=== PATIENT | female | born 1980 | race Caucasian/White ===

== ENCOUNTER → 2018-01-05 | Outpatient (CLI) | payer BC ==
[~2018-01-05] VITALS: Ht 167.6 cm; Wt 77.7 kg
[~2018-01-05] MED LIST: ASPIRIN81 M2 PO; DOXYCYCLINE HY100 MG PO; FABB TABLET1 EACH PO; FIORICET,ESG1 TABLET PO; HYDROCODON-ACE1 EAC7 PO; IBUPROFEN800 MG PO; MULTIPLE VITAM1 EACH PO; PRENATAL TABLE1 EAC3 PO
[2018-01-05 19:32] VITALS: BP 109/56
== END | disposition home or self-care (01) ==
LOC: IVINF 18:51
DX: Z34.83 Encounter for supervision of other normal pregnancy, third trimester (principal); Z3A.28 28 weeks gestation of pregnancy; Z67.11 Type A blood, Rh negative
CPT/HCPCS: 96372; J2790

== ENCOUNTER 2018-03-02 16:10 | Inpatient (IN) | payer BC ==
[~2018-03-02] VITALS: Ht 167.6 cm; Wt 86.2 kg
[2018-03-02 16:36] VITALS: BP 128/62
[2018-03-02 20:22] VITALS: BP 133/79
[2018-03-02 23:59] VITALS: BP 98/61
[2018-03-03] VITALS (7 sets, daily range): BP systolic 101–132; BP diastolic 56–70
[2018-03-03 11:29] LABS: BASOPHIL (%) 0.5 % (0-1); EOSINOPHIL (%) 0.6 % (0-5); EOSINOPHIL COUNT 0.1 K/uL (0-0.3); HEMATOCRIT 42.4 % (36.0-46.0); LYMPHOCYTE (%) 19.2 % (15-42); LYMPHOCYTE COUNT 1.7 K/uL (1.0-2.8); MCH 30.2 PG (29.0-34.0); MCV 91.4 FL (83-99); MONOCYTE (%) 8.3 % (3-12); MONOCYTE COUNT 0.7 K/uL (0-0.8); NEUTROPHIL (%) 70.4 % (45-76); NEUTROPHIL COUNT 6.2 K/uL (1.8-6.4); PLATELET COUNT 303 K/uL (156-360); RBC DIS.WIDTH-CV 13.9 % (11.8-14.6); RBC DIS.WIDTH-SD 46.1 % (39-53); RED BLOOD COUNT 4.64 M/uL (3.80-5.20); WHITE BLOOD COUNT 8.8 K/uL (4.1-10.2)
[2018-03-03 13:00] LABS: AMPHETAMINE NEGATIVE (500 ng/mL); BARBITURATES NEGATIVE (200 ng/mL); BENZODIAZEPINES NEGATIVE (150 ng/mL); COCAINE NEGATIVE (150 ng/mL); METHADONE NEGATIVE (200 ng/mL); METHAMPHETAMINE NEGATIVE (500 ng/mL); OPIATES (MORPHINE) NEGATIVE (100 ng/mL); PHENCYCLIDINE NEGATIVE (25 ng/mL); THC CANNABINOIDS NEGATIVE (50 ng/mL); TRICYCLIC ANTIDEPRESSANTS NEGATIVE (300 ng/mL)
[2018-03-03 13:01] LABS: BUPRENORPHINE NEGATIVE (10 ng/mL); OXYCODONE NEGATIVE (100 ng/mL); PROPOXYPHENE NEGATIVE (300 ng/mL)
[2018-03-03] MEDS ORDERED: PERCOCET 5/31 TABLET PO (16:34)
[2018-03-03] MEDS ORDERED: MOTRIN800 MG PO (16:34)
[2018-03-04 04:34] VITALS: BP 106/56
[2018-03-04 07:03] LABS: BASOPHIL (%) 0.1 % (0-1); EOSINOPHIL (%) 0 % (0-5); HEMATOCRIT 34.7 % (36.0-46.0); IMMATURE GRANULOCYTE (%) 0.7 % (0.0-0.7); LYMPHOCYTE (%) 7.3 % (15-42); LYMPHOCYTE COUNT 1.3 K/uL (1.0-2.8); MCH 30.6 PG (29.0-34.0); MCHC 33.7 G/DL (30.0-36.0); MCV 90.8 FL (83-99); MONOCYTE (%) 6.3 % (3-12); MONOCYTE COUNT 1.2 K/uL (0-0.8); NEUTROPHIL (%) 85.6 % (45-76); NEUTROPHIL COUNT 15.8 K/uL (1.8-6.4); PLATELET COUNT 287 K/uL (156-360); RBC DIS.WIDTH-CV 13.3 % (11.8-14.6); RBC DIS.WIDTH-SD 43.7 % (39-53); RED BLOOD COUNT 3.82 M/uL (3.80-5.20); WHITE BLOOD COUNT 18.4 K/uL (4.1-10.2)
[2018-03-04 07:04] LABS: HEMOGLOBIN 11.7 G/DL (11.9-15.5)
[2018-03-04 19:54] VITALS: BP 112/55
[2018-03-04 23:28] VITALS: BP 97/51
[2018-03-05 03:01] VITALS: BP 103/56
[2018-03-05 23:00] VITALS: BP 110/61
[2018-03-06 07:49] VITALS: BP 110/65
== END 2018-03-06 15:52 | disposition home or self-care (01) | DRG 765 ==
LOC: LDRP-OP 16:10 → 2WEST 16:12
PROVIDERS: Obstetrics & Gynecology
PROC: 10D00Z1 Extraction of Products of Conception, Low, Open Approach (ICD-10-PCS; principal; 2018-03-03)
DX: O41.03X0 Oligohydramnios, third trimester, not applicable or unspecified (principal); O60.14X0 Preterm labor third trimester with preterm delivery third trimester, not applicable or unspecified; O72.1 Other immediate postpartum hemorrhage; O34.211 Maternal care for low transverse scar from previous cesarean delivery; Z3A.36 36 weeks gestation of pregnancy; Z37.0 Single live birth
CPT/HCPCS: 76818; 83030; 85025; 86850; 86870; 86900; 86901; 86905; 86920; 88307; G0378; J0690; J0702; J2274; J2405; J2590; J2790; J7120